=== PATIENT | female | born 1945 | race Caucasian/White ===

== ENCOUNTER 2016-08-27 12:45 | Emergency (ER) | payer OTHER ==
[~2016-08-27] VITALS: Ht 176.5 cm; Wt 111.1 kg
--- NOTE | 2016-08-27 14:50 | ED GENERAL ADULT ---
History of Present Illness General Chief Complaint: Lower Extremity Problems Stated Complaint: LIGHTHEADED/LFT LEG PAIN Source: patient, family, old records Exam Limitations: no limitations Allergies Coded Allergies: MDX - Codeine (CODEINE) (12/12/10) MDX - Cortisone (CORTISONE) (12/12/10) Triage Note: PT STATES THAT SHE BROKE IN COLD SWEAT LAST PM AND HAD NAUSEA THIS AM, DENIES THIS NOW. STATES THAT SHE HAS LEFT KNEE PAIN FOR 2 WEEKS , DENIES PAIN AT THIS TIME DUE TO SHE IS SITTING. Triage Nurses Notes Reviewed? yes HPI: Patient is a 71-year-old female presents complaining of left knee pain and swelling 2 weeks and an episode of lightheadedness this morning. Patient reports that she was having breakfast this morning when she had an onset of lightheadedness, weakness, chills. Episode lasted 45 minutes and resolved. Patient has been having left knee pain and swelling for 2 weeks. Pain worsens with walking. Pain is currently moderate. Patient has not taken any medication for her symptoms. Patient does not recall any specific injury. Patient denies chest pain, difficulty breathing. (SILVIA DESHPANDE) Vital Signs & Intake/Output Vital Signs & Intake/Output Vital Signs Date Time Temp Pulse Resp B/P B/P Pulse O2 O2 Flow FiO2 Mean Ox Delivery Rate 08/27 1525 97.6 79 18 132/70 97 Room Air 08/27 1254 98.0 92 18 144/81 97 Room Air Past History Travel History Traveled to [place] past 21 day No Medical History Any Pertinent Medical History? see below for history Neurological: NONE EENT: NONE Cardiovascular: hypertension Gastrointestinal: GERD Hepatic: NONE Renal: NONE Musculoskeletal: NONE Psychiatric: NONE Endocrine: hypothyroidism Cancer(s): NONE SKINNER PELTS/Reproductive: NONE Tetanus Vaccine: Surgical History Surgical History: non-contributory Psychosocial History What is your primary language Polish Tobacco Use: Never used ETOH Use: denies use Illicit Drug Use: denies illicit drug use Family History Hx Contributory? No (SILVIA DESHPANDE) Review of Systems Review of Systems Constitutional: Reports: chills (resolved). Denies: fever. EENTM: Reports: no symptoms. Respiratory: Denies: cough, short of breath. Cardiovascular: Denies: chest pain, palpitations, syncope. GI: Denies: abdominal pain, vomiting. Genitourinary: Reports: no symptoms. Musculoskeletal: Reports: see HPI. Skin: Reports: no symptoms. Neurological/Psychological: Denies: headache, numbness, unable to move lower ext, unable to move upper ext, weakness. Hematologic/Endocrine: Denies: bruising, bleeding. Immunologic/Allergic: Denies: splenectomy. (EMANUEL MINOR,SILVIA) Physical Exam Physical Exam General Appearance: well developed/nourished, alert, awake Head: atraumatic, normal appearance Eyes: Bilateral: normal appearance, PERRL, EOMI. Ears, Nose, Throat: normal pharynx, normal ENT inspection, hearing grossly normal Neck: normal inspection, supple, full range of motion Respiratory: normal breath sounds, chest non-tender, no respiratory distress, lungs clear Cardiovascular: regular rate/rhythm (NO APPRECIABLE MURMUR) Peripheral Pulses: 2+ dorsalis pedis (L) Gastrointestinal: normal bowel sounds, soft, non-tender Back: normal inspection, normal range of motion Extremities: normal capillary refill, normal range of motion, MILD LEFT KNEE SWELLING. mILD TENDERNESS POSTERIOR KNEE. mILD LEFT CALF TENDERNESS. NO ERYTHEMA OR WARMTH TO THE LEFT LOWER EXTREMITY Neurologic/Psych: no motor/sensory deficits, awake, alert, oriented x 3, normal mood/affect Skin: intact, normal color, warm/dry Lymphatic: no anterior cervical carla Core Measures ACS in differential dx? No CVA/TIA Diagnosis: No Severe Sepsis Present: No Septic Shock Present: No (SILVIA DESHPANDE) Progress Differential Diagnoses I considered the following diagnoses in my evaluation of the patient: Diagnostic Imaging: Viewed by Me: Ultrasound. Discussed w/RAD: Ultrasound. Radiology Impression: PATIENT: GURDEEP MIRZA PRESENT AGE: 71 PATIENT ACCOUNT NO: [id number] : 45 LOCATION: [facility] ORDERING PHYSICIAN: SILVIA MINOR SERVICE DATE: 08/27/16 EXAM TYPE: US - US-UNILATERAL VENOUS DOPPLER EXAMINATION: US TRIPLEX LOWER EXTREMITY, LEFT CLINICAL INFORMATION: Left knee and calf pain and swelling. COMPARISON: None TECHNIQUE: Color-flow triplex imaging with spectral analysis and compression Doppler were performed on the left lower extremity. FINDINGS: The left common femoral vein is compressible and exhibits a normal phasic waveform; this suggests that the iliac veins are widely patent above. Within the proximal thigh , the visualized profunda femoris vein is patent. The examined greater saphenous vein and saphenofemoral junction are normal. Superficial femoral vein is patent in the proximal, mid and distal thigh. Popliteal vein appears normal to the level of the trifurcation. On color Doppler images, the visualized calf veins are grossly patent. No evidence of Sheriff's cyst. IMPRESSION: No evidence of deep vein thrombosis in the left lower extremity. DICTATED BY: KONRAD KINGSTON MD DATE/TIME DICTATED:08/27/161613 FRONT OFFICE ASSOCIATE:ALONSO DATE/TIME TRANSCRIBED:08/27/161613 CONFIDENTIAL, DO NOT COPY WITHOUT APPROPRIATE AUTHORIZATION. <Electronically signed in Other Vendor System> SIGNED BY: KONRAD KINGSTON MD 08/27/161617, PATIENT: GURDEEP MIRZA PRESENT AGE: 71 PATIENT ACCOUNT NO: [id number] : 45 LOCATION: [facility] ORDERING PHYSICIAN: SILVIA MINOR SERVICE DATE: 08/27/16 EXAM TYPE: RAD - XRY-KNEE COMPLETE LEFT EXAMINATION: XR KNEE, LEFT CLINICAL INFORMATION: Left knee pain and swelling COMPARISON: None TECHNIQUE: Four views of the left knee, 5 images. FINDINGS: The medial and lateral joint spaces are preserved. The patellofemoral compartment is unremarkable. There is no significant joint effusion. On the frontal radiograph, there are at least 2 well -corticated osseous structures just above and lateral to the tibial spines measuring between 2 and 4 mm. These findings localize to the joint space on the lateral projection. There is a small amount of lucency present within the lateral femoral condyle, medial aspect. There is no acute fracture or subluxation. No radiopaque foreign body. IMPRESSION: At least 2 possible intra- articular loose bodies identified within the left knee as described. Possible donor site ridging from the lateral femoral condyle. No effusion. DICTATED BY: GENIE MG MD DATE/TIME DICTATED:08/27/161637 FRONT OFFICE ASSOCIATE:ALONSO DATE/TIME TRANSCRIBED:08/27/161637 CONFIDENTIAL, DO NOT COPY WITHOUT APPROPRIATE AUTHORIZATION. <Electronically signed in Other Vendor System> SIGNED BY: GENIE MG MD 08/27/16 164 Initial ED EKG: none (EMANUEL MINOR,SILVIA) Plan of Care: Orders Procedure Date/time Status XRY-KNEE COMPLETE LEFT 08/27 1502 Active Discussed with and seen by Dr. Rader. 1625: Results of ultrasound discussed with patient. Awaiting x-ray. 165: Results of x-ray discussed with patient. No acute neurovascular abnormalities on exam. Appears stable for discharge and outpatient follow up. (SILVIA DESHPANDE) Departure Departure Time of Disposition: 1648 Disposition: HOME OR SELF CARE Condition: Stable Clinical Impression Primary Impression: Arthritis of right knee Secondary Impressions: Lightheadedness Referrals: OLIVIA HOLT,GRAHAM Madsen (PCP/Family) LEDY RICHMOND MD Additional Instructions: Follow up with your primary doctor for further evaluation. You may also follow up with your orthopedist, Dr. Richmond, for further evaluation. [facility] Return to the ER if worsening of symptoms. Departure Forms: Customer Survey General Discharge Information (SILVIA DESHPANDE) PA/KNITTING SUPERVISOR Co-Sign Statement Statement: ED Attending supervision documentation- [x] I saw and evaluated the patient. I have also reviewed all the pertinent lab results and diagnostic results. I agree with the findings and the plan of care as documented in the PA's/KNITTING SUPERVISOR's documentation. [] I have reviewed the ED Record and agree with the PA's/KNITTING SUPERVISOR's documentation. [] Additions or exceptions (if any) to the PAs/KNITTING SUPERVISOR's note and plan are summarized below: [] (LESIA HOLT,RENA Grant) Critical Care Note Critical Care Note Critical Care Time: non-applicable (SILVIA DESHPANDE)
--- NOTE | 2016-08-27 16:18 | ULTRASOUND REPORT ---
EXAMINATION: US TRIPLEX LOWER EXTREMITY, LEFT CLINICAL INFORMATION: Left knee and calf pain and swelling. COMPARISON: None TECHNIQUE: Color-flow triplex imaging with spectral analysis and compression Doppler were performed on the left lower extremity. FINDINGS: The left common femoral vein is compressible and exhibits a normal phasic waveform; this suggests that the iliac veins are widely patent above. Within the proximal thigh, the visualized profunda femoris vein is patent. The examined greater saphenous vein and saphenofemoral junction are normal. Superficial femoral vein is patent in the proximal, mid and distal thigh. Popliteal vein appears normal to the level of the trifurcation. On color Doppler images, the visualized calf veins are grossly patent. No evidence of Sheriff's cyst. IMPRESSION: No evidence of deep vein thrombosis in the left lower extremity.
--- NOTE | 2016-08-27 16:44 | RADIOLOGY REPORT ---
EXAMINATION: XR KNEE, LEFT CLINICAL INFORMATION: Left knee pain and swelling COMPARISON: None TECHNIQUE: Four views of the left knee, 5 images. FINDINGS: The medial and lateral joint spaces are preserved. The patellofemoral compartment is unremarkable. There is no significant joint effusion. On the frontal radiograph, there are at least 2 well-corticated osseous structures just above and lateral to the tibial spines measuring between 2 and 4 mm. These findings localize to the joint space on the lateral projection. There is a small amount of lucency present within the lateral femoral condyle, medial aspect. There is no acute fracture or subluxation. No radiopaque foreign body. IMPRESSION: At least 2 possible intra-articular loose bodies identified within the left knee as described. Possible donor site ridging from the lateral femoral condyle. No effusion.
[2016-08-27 16:53] VITALS: BP 136/74
== END 2016-08-27 16:54 ==
LOC: ERH 12:45
DX: M17.9 Osteoarthritis of knee, unspecified (principal); R42 Dizziness and giddiness
CPT/HCPCS: 73562-LT